=== PATIENT | male | born 1975 | race American Indian/Alaskan Native ===

== ENCOUNTER 2018-10-03 15:32 | Emergency (ER) | payer OTHER ==
[2018-10-03 16:23] VITALS: BP 144/108
--- NOTE | 2018-10-03 17:58 | XRay Report ---
PROCEDURE: XR FINGER(S) 2+V LT TECHNIQUE: Left fourth finger 3 views HISTORY: trauma COMPARISONS: FINDINGS: There is nondisplaced fracture tuft distal phalanx of the fourth digit. No radiopaque foreign bodies are observed. Joint spaces are within normal limits.. IMPRESSION: Nondisplaced fracture tuft distal phalanx of the fourth digit. This document is electronically signed by Aidan Be MD., October 03 2018 05:56:45 PM ET
[2018-10-03] MEDS ORDERED: NACL 0.9% IR ONE (18:04)
[2018-10-03] MEDS ORDERED: TRIPLE ANTIBIOTIC TP ONE (18:04)
[2018-10-03] MEDS ORDERED: BOOSTRIX IM ONE (18:04)
[2018-10-03] MEDS ORDERED: ANCEF IM ONE (18:04)
[2018-10-03] MEDS ORDERED: XYLOCAINE 1% 20 mL INFILTRATI ONE (18:04)
--- NOTE | 2018-10-03 18:05 | Emergency Department Report ---
ED Laceration HPI - HPI Chief Complaint: Wound/Laceration Stated Complaint: LFT HAND INJURY/PAIN Time Seen by Provider: 10/03/18 18:04 Occurred When: Today Location: Upper Extremity Severity: moderate Tetanus Status: Not up to Date Laceration Symptoms: Yes Pain, No Foreign Body Sensation, No Numbness, No Weakness Other History: H and is a pleasant 43-year-old male who comes to the ER today after lifting furniture at home and the furniture fell on his finger. First response was to yank his finger from underneath furniture which is resulted in an fracture and avulsion type wound of his left ring finger. The avulsion involves the palmar surface of the hand. The nail bed is intact. There is contused tissue. Patient has no other injuries. He is neurovascularly intact. ED Review of Systems ROS: Stated complaint: LFT HAND INJURY/PAIN Other details as noted in HPI Comment: All other systems reviewed and negative ED Past Medical Hx - Past Medical History Previous Medical History?: Yes - Surgical History Past Surgical History?: Yes - Family History Family history: no significant - Social History Smoking Status: Heavy Tobacco Smoker Substance Use Type: Alcohol, Marijuana - Medications Home Medications: Home Medications Medication Instructions Recorded Confirmed Last Taken Type cephALEXin [Keflex] 500 mg PO Q12HR #20 cap 10/03/18 Unknown Rx traMADol [Ultram] 50 mg PO Q6HR PRN #12 tablet 10/03/18 Unknown Rx Laceration Physical Exam - Exam General: Vital signs noted. No distress. Alert and acting appropriately. Wound Length (cm): 2 Laceration Location: Upper Extremity Laceration Exam: Yes Normal Distal CMS, No Foreign Body, No Exposed Tendon, Vessel, or Nerve, No Tendon Injury ED Course Vital Signs 10/03/18 10/03/18 15:38 16:20 Temperature 98.8 F 98.6 F Pulse Rate 91 H 78 Respiratory 20 16 Rate Blood Pressure 144/108 Blood Pressure 139/102 [Right] O2 Sat by Pulse 98 99 Oximetry - Laceration /Wound Repair l ring finger Wound Location: upper extremity Irrigated w/ Saline (ccs): 2 Betadine Prep?: Yes Anesthesia: 1% Lidocaine Volume Anesthetic (ccs): 5 Wound Debrided: minimal Wound Repaired With: sutures Number of Sutures: 1 Layer Closure?: No Sterile Dressing Applied?: Yes Progress: tolerated well this is avulsed wound only one suture placed to take tissue down. It may though dry and the top layer of tissue slough off. The tissue is contused Pt and aware If the tissue does stay he should come back in 1 week to get the 1 suture removed. ED Medical Decision Making - Medical Decision Making open fx lac repair tdap ancef IM dc home with wound care instructions Vital Signs 10/03/18 10/03/18 15:38 16:20 Temperature 98.8 F 98.6 F Pulse Rate 91 H 78 Respiratory 20 16 Rate Blood Pressure 144/108 Blood Pressure 139/102 [Right] O2 Sat by Pulse 98 99 Oximetry Critical care attestation.: If time is entered above; I have spent that time in minutes in the direct care of this critically ill patient, excluding procedure time. ED Disposition Clinical Impression: Open fracture of finger of left hand, Elevated blood pressure reading Disposition: DC- TO HOME OR SELFCARE Is pt being admited?: No Does the pt Need Aspirin: No Condition: Stable Instructions: Laceration (ED) Additional Instructions: med as ordered today diet as tolerated activity as tolerated hydrate well with water wound care as instructed motrin or tylenol for mild pain monitor blood pressure if persistently high follow up with pcp referral below Referrals: YING DODSON MD [Primary Care Provider] - 3-5 Days Forms: Work/School Release Form(ED) Time of Disposition: 18:45
[2018-10-03] MEDS ORDERED: NORCO 5/325 PO ONE (18:16)
== END 2018-10-03 19:00 | disposition home or self-care (01) ==
LOC: ED 15:32
DX: S62.66 Nondisplaced fracture of distal phalanx of finger (principal); F17.200 Nicotine dependence, unspecified, uncomplicated; F12.10 Cannabis abuse, uncomplicated; W20.8XXA Other cause of strike by thrown, projected or falling object, initial encounter; Y92.89 Other specified places as the place of occurrence of the external cause; Y93.89 Activity, other specified; Y99.8 Other external cause status
CPT/HCPCS: 12001; 73140; 90471; 90715; 96372; 99283; J0690; A6250